=== PATIENT | female | born 1940 | race Caucasian/White ===

== ENCOUNTER 2016-02-08 09:56 | Outpatient (CLI) | payer MEDICARE, OTHER | END 2016-02-08 09:57 | LOC: LAB 09:56 | PROVIDERS: ATTEND Internal Medicine | DX: Z51.81 Encounter for therapeutic drug level monitoring (principal); Z79.01 Long term (current) use of anticoagulants; I82.409 Acute embolism and thrombosis of unspecified deep veins of unspecified lower extremity | CPT/HCPCS: 36415; 85610 ==

== ENCOUNTER 2016-03-10 10:07 | Outpatient (CLI) | payer MEDICARE, OTHER | END 2016-03-10 10:10 | LOC: LAB 10:07 | PROVIDERS: ATTEND Internal Medicine | DX: Z51.81 Encounter for therapeutic drug level monitoring (principal); Z79.01 Long term (current) use of anticoagulants; I82.509 Chronic embolism and thrombosis of unspecified deep veins of unspecified lower extremity | CPT/HCPCS: 36415; 85610 ==

== ENCOUNTER 2016-04-07 08:19 | Outpatient (CLI) | payer MEDICARE, OTHER | END 2016-04-07 08:20 | LOC: LAB 08:19 | PROVIDERS: ATTEND Internal Medicine | DX: Z51.81 Encounter for therapeutic drug level monitoring (principal); Z79.01 Long term (current) use of anticoagulants; I82.409 Acute embolism and thrombosis of unspecified deep veins of unspecified lower extremity; I26.99 Other pulmonary embolism without acute cor pulmonale | CPT/HCPCS: 36415; 85610 ==

== ENCOUNTER 2016-05-08 09:37 | Outpatient (CLI) | payer MEDICARE, OTHER | END 2016-05-09 09:40 | LOC: LAB 09:37 | PROVIDERS: ATTEND Internal Medicine | DX: Z51.81 Encounter for therapeutic drug level monitoring (principal); Z79.01 Long term (current) use of anticoagulants; I26.99 Other pulmonary embolism without acute cor pulmonale; I82.509 Chronic embolism and thrombosis of unspecified deep veins of unspecified lower extremity | CPT/HCPCS: 36415; 85610 ==

== ENCOUNTER 2016-06-06 09:43 | Outpatient (CLI) | payer MEDICARE, OTHER | END 2016-06-06 09:44 | LOC: LAB 09:43 | PROVIDERS: ATTEND Internal Medicine | DX: Z51.81 Encounter for therapeutic drug level monitoring (principal); Z79.01 Long term (current) use of anticoagulants; I82.509 Chronic embolism and thrombosis of unspecified deep veins of unspecified lower extremity; I26.99 Other pulmonary embolism without acute cor pulmonale | CPT/HCPCS: 36415; 85610 ==

== ENCOUNTER 2016-06-16 08:31 | Outpatient (CLI) | payer MEDICARE, OTHER | END 2016-06-16 08:33 | LOC: LAB 08:31 | PROVIDERS: ATTEND Internal Medicine | DX: Z51.81 Encounter for therapeutic drug level monitoring (principal); Z79.01 Long term (current) use of anticoagulants; I26.99 Other pulmonary embolism without acute cor pulmonale; I82.509 Chronic embolism and thrombosis of unspecified deep veins of unspecified lower extremity | CPT/HCPCS: 36415; 85610 ==

== ENCOUNTER 2016-06-30 09:29 | Outpatient (CLI) | payer MEDICARE, OTHER | END 2016-06-30 09:30 | LOC: LAB 09:29 | PROVIDERS: ATTEND Internal Medicine | DX: I82.509 Chronic embolism and thrombosis of unspecified deep veins of unspecified lower extremity (principal); I26.99 Other pulmonary embolism without acute cor pulmonale; Z79.01 Long term (current) use of anticoagulants | CPT/HCPCS: 36415; 85610 ==

== ENCOUNTER 2016-08-07 08:00 | Outpatient (CLI) | payer MEDICARE, OTHER | END 2016-08-07 08:02 | LOC: LAB 08:00 | PROVIDERS: ATTEND Internal Medicine | DX: I82.509 Chronic embolism and thrombosis of unspecified deep veins of unspecified lower extremity (principal); I26.99 Other pulmonary embolism without acute cor pulmonale; Z79.01 Long term (current) use of anticoagulants | CPT/HCPCS: 36415; 85610 ==

== ENCOUNTER 2016-08-22 07:54 | Outpatient (CLI) | payer MEDICARE, OTHER | END 2016-08-22 07:55 | LOC: LAB 07:54 | PROVIDERS: ATTEND Internal Medicine | DX: I82.509 Chronic embolism and thrombosis of unspecified deep veins of unspecified lower extremity (principal); I26.99 Other pulmonary embolism without acute cor pulmonale; Z79.01 Long term (current) use of anticoagulants | CPT/HCPCS: 36415; 85610 ==

== ENCOUNTER 2016-09-06 08:04 | Outpatient (CLI) | payer MEDICARE, OTHER | END 2016-09-06 08:05 | LOC: LAB 08:04 | PROVIDERS: ATTEND Internal Medicine | DX: I82.509 Chronic embolism and thrombosis of unspecified deep veins of unspecified lower extremity (principal); I26.99 Other pulmonary embolism without acute cor pulmonale; Z79.01 Long term (current) use of anticoagulants | CPT/HCPCS: 36415; 85610 ==

== ENCOUNTER 2016-09-20 10:02 | Outpatient (CLI) | payer MEDICARE, OTHER | END 2016-09-20 10:10 | LOC: LAB 10:02 | PROVIDERS: ATTEND Internal Medicine | DX: I82.509 Chronic embolism and thrombosis of unspecified deep veins of unspecified lower extremity (principal); I26.99 Other pulmonary embolism without acute cor pulmonale; Z79.01 Long term (current) use of anticoagulants | CPT/HCPCS: 36415; 85610 ==

== ENCOUNTER 2016-10-18 08:12 | Outpatient (CLI) | payer MEDICARE, OTHER | END 2016-10-18 08:13 | LOC: LAB 08:12 | PROVIDERS: ATTEND Internal Medicine | DX: I26.99 Other pulmonary embolism without acute cor pulmonale (principal); Z79.01 Long term (current) use of anticoagulants | CPT/HCPCS: 36415; 85610 ==

== ENCOUNTER 2016-12-14 08:13 | Outpatient (CLI) | payer MEDICARE, OTHER | END 2016-12-14 08:14 | LOC: LAB 08:13 | PROVIDERS: ATTEND Internal Medicine | DX: I82.509 Chronic embolism and thrombosis of unspecified deep veins of unspecified lower extremity (principal); I26.99 Other pulmonary embolism without acute cor pulmonale; Z79.01 Long term (current) use of anticoagulants | CPT/HCPCS: 36415; 85610 ==

== ENCOUNTER 2017-01-10 09:37 | Outpatient (CLI) | payer MEDICARE, OTHER | END 2017-01-10 09:40 | LOC: LAB 09:37 | PROVIDERS: ATTEND Internal Medicine | DX: I82.509 Chronic embolism and thrombosis of unspecified deep veins of unspecified lower extremity (principal); I26.99 Other pulmonary embolism without acute cor pulmonale; Z79.01 Long term (current) use of anticoagulants | CPT/HCPCS: 36415; 85610 ==

== ENCOUNTER 2017-02-07 08:41 | Outpatient (CLI) | payer MEDICARE, OTHER | END 2017-02-07 08:42 | LOC: LAB 08:41 | PROVIDERS: ATTEND Internal Medicine | DX: I82.509 Chronic embolism and thrombosis of unspecified deep veins of unspecified lower extremity (principal); I26.99 Other pulmonary embolism without acute cor pulmonale; Z79.01 Long term (current) use of anticoagulants | CPT/HCPCS: 36415; 85610 ==

== ENCOUNTER 2017-03-09 08:58 | Outpatient (CLI) | payer MEDICARE, OTHER | END 2017-03-09 09:00 | LOC: LAB 08:58 | PROVIDERS: ATTEND Internal Medicine | DX: Z79.01 Long term (current) use of anticoagulants (principal); I82.509 Chronic embolism and thrombosis of unspecified deep veins of unspecified lower extremity; I26.99 Other pulmonary embolism without acute cor pulmonale | CPT/HCPCS: 36415; 85610 ==

== ENCOUNTER 2017-04-05 08:51 | Outpatient (CLI) | payer MEDICARE, OTHER | END 2017-04-05 08:53 | LOC: LAB 08:51 | PROVIDERS: ATTEND Internal Medicine | DX: Z79.01 Long term (current) use of anticoagulants (principal); I82.509 Chronic embolism and thrombosis of unspecified deep veins of unspecified lower extremity; I26.99 Other pulmonary embolism without acute cor pulmonale | CPT/HCPCS: 36415; 85610 ==

== ENCOUNTER 2017-05-08 09:49 | Outpatient (CLI) | payer MEDICARE, OTHER | END 2017-05-08 09:50 | LOC: LAB 09:49 | PROVIDERS: ATTEND Internal Medicine | DX: Z79.01 Long term (current) use of anticoagulants (principal); I82.509 Chronic embolism and thrombosis of unspecified deep veins of unspecified lower extremity; I26.99 Other pulmonary embolism without acute cor pulmonale | CPT/HCPCS: 36415; 85610 ==

== ENCOUNTER 2017-06-07 08:16 | Outpatient (CLI) | payer MEDICARE, OTHER | END 2017-06-07 08:17 | LOC: LAB 08:16 | PROVIDERS: ATTEND Internal Medicine | DX: Z79.01 Long term (current) use of anticoagulants (principal); I82.509 Chronic embolism and thrombosis of unspecified deep veins of unspecified lower extremity; I26.99 Other pulmonary embolism without acute cor pulmonale | CPT/HCPCS: 36415; 85610 ==

== ENCOUNTER 2017-07-10 11:21 | Outpatient (CLI) | payer MEDICARE, OTHER | END 2017-07-10 11:22 | LOC: LAB 11:21 | PROVIDERS: ATTEND Internal Medicine | DX: Z79.01 Long term (current) use of anticoagulants (principal); I82.509 Chronic embolism and thrombosis of unspecified deep veins of unspecified lower extremity; I26.99 Other pulmonary embolism without acute cor pulmonale | CPT/HCPCS: 36415; 85610 ==

== ENCOUNTER 2017-08-09 13:15 | Outpatient (CLI) | payer MEDICARE, OTHER | END 2017-08-09 13:16 | LOC: LAB 13:15 | PROVIDERS: ATTEND Internal Medicine | DX: Z79.01 Long term (current) use of anticoagulants (principal); I82.509 Chronic embolism and thrombosis of unspecified deep veins of unspecified lower extremity; I26.99 Other pulmonary embolism without acute cor pulmonale | CPT/HCPCS: 36415; 85610 ==

== ENCOUNTER 2017-09-13 09:50 | Outpatient (CLI) | payer MEDICARE, OTHER ==
[2017-09-13 11:54] LABS: BASOPHILS % 0.7 (0.0-1.5); EOSINOPHILS % 3.4 % (0.0-6.8); MEAN CORPUSCULAR HEMOGLOBIN 31.4 pg (28.0-34.0); MEAN CORPUSCULAR VOLUME 91.4 fl (80.0-100.0); MONOCYTES % 6.6 % (0.0-11.0); NEUTROPHILS # 3.2 # k/uL (1.4-7.7)
[2017-09-13 12:28] LABS: APPEARANCE,URINE CLEAR (CLEAR); COLOR,URINE YELLOW (YELLOW)
[2017-09-13 12:29] LABS: OCCULT BLOOD,URINE NEGATIVE (NEGATIVE); UROBILINOGEN URINE 0.2 Eu (0.2-1.0)
[2017-09-13 17:22] LABS: TOTAL PROTEIN 6.9 g/dL (6.0-8.5)
== END 2017-09-17 09:52 ==
LOC: LAB 09:50
PROVIDERS: ATTEND Internal Medicine
DX: Z00.00 Encounter for general adult medical examination without abnormal findings (principal); E78.2 Mixed hyperlipidemia; E03.9 Hypothyroidism, unspecified; M50.90 Cervical disc disorder, unspecified, unspecified cervical region; M51.86 Other intervertebral disc disorders, lumbar region; M15.0 Primary generalized (osteo)arthritis; M13.10 Monoarthritis, not elsewhere classified, unspecified site; K21.9 Gastro-esophageal reflux disease without esophagitis; Z79.01 Long term (current) use of anticoagulants; I82.509 Chronic embolism and thrombosis of unspecified deep veins of unspecified lower extremity; I26.99 Other pulmonary embolism without acute cor pulmonale
CPT/HCPCS: 36415; 80053; 80061; 81002; 84443; 85025; 85610

== ENCOUNTER 2017-10-09 09:10 | Outpatient (CLI) | payer MEDICARE, OTHER | END 2017-10-09 09:11 | LOC: LAB 09:10 | PROVIDERS: ATTEND Internal Medicine | DX: Z79.01 Long term (current) use of anticoagulants (principal); I82.509 Chronic embolism and thrombosis of unspecified deep veins of unspecified lower extremity; I26.99 Other pulmonary embolism without acute cor pulmonale | CPT/HCPCS: 36415; 85610 ==

== ENCOUNTER 2017-11-06 08:07 | Outpatient (CLI) | payer MEDICARE, OTHER | END 2017-11-06 08:10 | LOC: LAB 08:07 | PROVIDERS: ATTEND Internal Medicine | DX: Z79.01 Long term (current) use of anticoagulants (principal); I82.509 Chronic embolism and thrombosis of unspecified deep veins of unspecified lower extremity; I26.99 Other pulmonary embolism without acute cor pulmonale | CPT/HCPCS: 36415; 85610 ==

== ENCOUNTER 2018-01-08 09:25 | Outpatient (CLI) | payer MEDICARE, OTHER | END 2018-01-08 09:26 | LOC: LAB 09:25 | PROVIDERS: ATTEND Internal Medicine | DX: I82.509 Chronic embolism and thrombosis of unspecified deep veins of unspecified lower extremity (principal); I26.99 Other pulmonary embolism without acute cor pulmonale; Z79.01 Long term (current) use of anticoagulants | CPT/HCPCS: 36415; 85610 ==

== ENCOUNTER 2018-02-08 09:37 | Outpatient (CLI) | payer MEDICARE, OTHER | END 2018-02-08 09:50 | LOC: LAB 09:37 | PROVIDERS: ATTEND Internal Medicine | DX: I82.509 Chronic embolism and thrombosis of unspecified deep veins of unspecified lower extremity (principal); Z79.01 Long term (current) use of anticoagulants | CPT/HCPCS: 36415; 85610 ==

== ENCOUNTER 2018-03-11 10:24 | Outpatient (CLI) | payer MEDICARE, OTHER | END 2018-03-11 10:30 | LOC: LAB 10:24 | PROVIDERS: ATTEND Internal Medicine | DX: I82.509 Chronic embolism and thrombosis of unspecified deep veins of unspecified lower extremity (principal); Z79.01 Long term (current) use of anticoagulants | CPT/HCPCS: 36415; 85610 ==

== ENCOUNTER 2018-04-10 08:38 | Outpatient (CLI) | payer MEDICARE, OTHER | END 2018-04-10 08:40 | LOC: LAB 08:38 | PROVIDERS: ATTEND Internal Medicine | DX: I82.509 Chronic embolism and thrombosis of unspecified deep veins of unspecified lower extremity (principal); Z79.01 Long term (current) use of anticoagulants | CPT/HCPCS: 36415; 85610 ==

== ENCOUNTER 2018-05-07 08:16 | Outpatient (CLI) | payer MEDICARE, OTHER | END 2018-05-07 08:18 | LOC: LAB 08:16 | PROVIDERS: ATTEND Internal Medicine | DX: I82.509 Chronic embolism and thrombosis of unspecified deep veins of unspecified lower extremity (principal); Z79.01 Long term (current) use of anticoagulants | CPT/HCPCS: 36415; 85610 ==

== ENCOUNTER 2018-08-07 08:22 | Outpatient (CLI) | payer MEDICARE, OTHER | END 2018-08-07 08:24 | LOC: LAB 08:22 | PROVIDERS: ATTEND Internal Medicine | DX: I82.509 Chronic embolism and thrombosis of unspecified deep veins of unspecified lower extremity (principal); Z79.01 Long term (current) use of anticoagulants; Z51.81 Encounter for therapeutic drug level monitoring | CPT/HCPCS: 36415; 85610 ==

== ENCOUNTER 2018-09-12 08:07 | Outpatient (CLI) | payer MEDICARE, OTHER ==
[2018-09-12 09:23] LABS: SEGMENTED NEUTROPHILS % 57 % (39-79)
[2018-09-12 09:24] LABS: BASOPHILS % 2 % (0-2)
[2018-09-12 09:25] LABS: APPEARANCE,URINE CLEAR (CLEAR); COLOR,URINE YELLOW (YELLOW); OCCULT BLOOD,URINE NEGATIVE (NEGATIVE); PH URINE 5.5 (5.0 - 8.0); UROBILINOGEN URINE 0.2 Eu (0.2-1.0)
[2018-09-12 10:03] LABS: HDL 43 mg/dL (>40); eGFR (Non-African) 36
== END 2018-09-12 08:10 ==
LOC: LAB 08:07
PROVIDERS: ATTEND Internal Medicine
DX: Z00.01 Encounter for general adult medical examination with abnormal findings (principal); E03.9 Hypothyroidism, unspecified; M15.0 Primary generalized (osteo)arthritis
CPT/HCPCS: 36415; 80053; 80061; 81002; 84443; 85025; 85610

== ENCOUNTER 2018-10-14 08:03 | Outpatient (CLI) | payer MEDICARE, OTHER | END 2018-10-14 08:05 | LOC: LAB 08:03 | PROVIDERS: ATTEND Internal Medicine | DX: I82.509 Chronic embolism and thrombosis of unspecified deep veins of unspecified lower extremity (principal); Z79.01 Long term (current) use of anticoagulants | CPT/HCPCS: 36415; 85610 ==

== ENCOUNTER 2018-11-12 08:20 | Outpatient (CLI) | payer MEDICARE, OTHER | END 2018-11-12 08:30 | LOC: LAB 08:20 | PROVIDERS: ATTEND Internal Medicine | DX: Z51.81 Encounter for therapeutic drug level monitoring (principal); Z79.01 Long term (current) use of anticoagulants; I82.509 Chronic embolism and thrombosis of unspecified deep veins of unspecified lower extremity | CPT/HCPCS: 36415; 85610 ==

== ENCOUNTER 2018-12-11 08:17 | Outpatient (CLI) | payer MEDICARE, OTHER | END 2018-12-11 08:22 | LOC: LAB 08:17 | PROVIDERS: ATTEND Internal Medicine | DX: I82.509 Chronic embolism and thrombosis of unspecified deep veins of unspecified lower extremity (principal); Z79.01 Long term (current) use of anticoagulants | CPT/HCPCS: 36415; 85610 ==

== ENCOUNTER 2019-01-08 13:07 | Outpatient (CLI) | payer MEDICARE, OTHER | END 2019-01-08 13:12 | LOC: LAB 13:07 | PROVIDERS: ATTEND Internal Medicine | DX: I82.509 Chronic embolism and thrombosis of unspecified deep veins of unspecified lower extremity (principal); Z79.01 Long term (current) use of anticoagulants | CPT/HCPCS: 36415; 85610 ==

== ENCOUNTER 2019-02-10 09:00 | Outpatient (CLI) | payer MEDICARE, OTHER | END 2019-02-10 09:05 | LOC: LAB 09:00 | PROVIDERS: ATTEND Internal Medicine | DX: I82.509 Chronic embolism and thrombosis of unspecified deep veins of unspecified lower extremity (principal); Z79.01 Long term (current) use of anticoagulants | CPT/HCPCS: 36415; 85610 ==